=== PATIENT | female | born 1995 | race Asian ===

== ENCOUNTER 2023-05-14 11:33 | Outpatient (CLI) | payer OTHER, SELFPAY ==
--- NOTE | 2023-05-14 11:46 | ECG_ITS ---
Measurements Intervals [place] Rate: 65 P: 60 [place]: 161 QRS: 74 QRSD: 103 T: 35 QT: 454 QTc: 475 Interpretive Statements SINUS RHYTHM JUNCIONAL COMPLEX AND VENTRICULAR PREMATURE COMPLEX LEFT ATRIAL ENLARGEMENT INCOMPLETE RIGHT BUNDLE BRANCH BLOCK DELAYED PRECORDIAL R/S TRANSITION BASELINE ARTIFACT- AVR, AVL, V4-V6 ABNORMAL ECG NO PREVIOUS ECG AVAILABLE FOR COMPARISON Electronically Signed On 05-14-2023 12:30:29 [employer]PL[employer] REPAIR[employer] by Zhang Beck D.O.
== END 2023-05-14 11:34 | disposition home or self-care (01) ==
PROVIDERS: PCP Family Medicine; Visit Provider Physician Assistant Medical
DX: R00.1 Bradycardia, unspecified (principal); R94.31 Abnormal electrocardiogram [ECG] [EKG]
CPT/HCPCS: 93005